=== PATIENT | male | born 2000 | race Caucasian/White ===

== ENCOUNTER 2020-10-23 19:13 | Emergency (ER) | payer OTHER, SELFPAY ==
[2020-10-23 19:17] VITALS: BP 123/87; PULSE 96; RESP 20; TEMP 37.2; O2SAT 96
--- NOTE | 2020-10-23 20:45 | PC.NURSE ---
Pt's mother up to the desk stating she is going to take him elsewhere. Pt ambulated to exit with a steady gait.
== END 2020-10-24 04:42 | disposition left against medical advice (07) ==
LOC: ANHED 20:53
DX: R51.9 Headache, unspecified (principal)
CPT/HCPCS: 99199